=== PATIENT | female | born 1990 | race Caucasian/White ===

== ENCOUNTER 2021-07-25 19:11 | Emergency (ER) | payer SELFPAY ==
[2021-07-25 19:19] VITALS: BP 130/74; PULSE 90; RESP 18; TEMP 36.8; O2SAT 100
--- NOTE | 2021-07-25 19:51 | PC.NURSE ---
pt left d/t wait time, encouraged to return if need be, pt agreeable
== END 2021-07-26 00:55 | disposition left against medical advice (07) ==
LOC: ANHED 19:55
DX: R51.9 Headache, unspecified (principal)
CPT/HCPCS: 99199

== ENCOUNTER 2022-06-05 12:51 | Outpatient (CLI) | payer OTHER, SELFPAY ==
--- NOTE | ~2022-06-05 | US_ITS ---
EXAMINATION: US OB /maternal detail DATE: 06/05/2022 14:33 INDICATION: anatomic survey. TECHNIQUE: Real-time ultrasound of the pelvis was performed. COMPARISON: None. FINDINGS: There is a single living fetus in vertex presentation. The placenta is posterior. heart rate i s 142 beats per minute (bpm). The amniotic fluid volume is subjectively normal. The following biometric data were obtained: Biparietal diameter (BPD): 4.6 cm; head circumference (HC): 16.4 cm; abdominal circumference (AC): 14 .0 cm; femur length (FL): 3.1 cm. These measurements are concordant. Estimated weight is 294 g +/- 44 g, which correlates with the 57th percentile when 10/28/22 is u sed as estimated date of delivery. As single measurements, these parameters are each equal to the following estimated gestational ages: BPD: 19 weeks 5 days. HC: 19 weeks 1 days. AC: 19 weeks 3 days. FL: 19 weeks 4 days. estimated gestational age based solely on measurements from this exam is 19 weeks 3 days +/- 1 weeks 3 days. The cerebral ventricles, cerebellum, cisterna magna, nuchal fold, lip, and visualized portions of the spine are normal. The heart is normal. The diaphragm, stomach, kidneys, and bladder are normal. Ther e are two umbilical arteries to yield a 3-vessel cord. The cord insertion is normal. IMPRESSION: 1. Single living fetus in vertex presentation. 2. Estimated weight is 294 g +/- 44 g, which correlates with the 57th percentile when 10/28/22 is used as estimated date of delivery. 3. Normal anatomic survey. Reviewed, dictated and finalized at location A. BUILDER IMPRESSION: 1. Single living fetus in vertex presentation. 2. Estimated weight is 294 g +/- 44 g, which correlates with the 57th pe rcentile when 10/28/22 is used as estimated date of delivery. 3. Normal anatomic survey.
== END 2022-06-05 12:52 | disposition home or self-care (01) ==
LOC: ANHIMG 13:04
PROVIDERS: Visit Provider Obstetrics & Gynecology Gynecologic Oncology
DX: Z36.9 Encounter for antenatal screening, unspecified (principal)
CPT/HCPCS: 76805